=== PATIENT | female | born 1930 | race Caucasian/White ===

== ENCOUNTER 2016-04-26 13:57 | Emergency (ER) | payer OTHER ==
[2016-04-26] MEDS ORDERED: ASPIRIN 81 MG CHEWABLE TAB PO ONE (14:15)
--- NOTE | 2016-04-26 14:22 | CPEKG ---
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
[2016-04-26 14:36] LABS: % IMMATURE GRANULYOCYTES 0.3 % (0.0-1.1); ABSOLUTE IMMATURE GRANULOCYTES 0.02 10^3/uL (0.00-0.10); ADD DIFF? NO; ADD MORPH? NO; ADD SCAN? NO; ATYPICAL LYMPHOCYTE FLAG 0 (0-99); FRAGMENT RBC FLAG 0 (0-99); HEMATOCRIT 38.4 % (38.0-47.0); HEMOGLOBIN 13.4 g/dL (12.6-16.3); LEFT SHIFT FLG 0 (0-99); LIPEMIA HEMOLYSIS FLAG 90 (0-99); MEAN CELL HEMOGLOBIN 32.1 pg (27.9-34.1); MEAN CELL HEMOGLOBIN CONCENTR. 34.9 g/dL (32.4-36.7); MEAN CELL VOLUME 91.9 fL (81.5-99.8); MEAN PLATELET VOLUME 8.7 fL (8.7-11.7); PLATELET CLUMPS FLAG 0 (0-99); PLATELET COUNT 347 10^3/uL (150-400); RED BLOOD CELL COUNT 4.18 10^6/uL (4.18-5.33); RED CELL DISTRIBUTION WIDTH 13.1 % (11.5-15.2)
[2016-04-26 14:47] LABS: INR 0.9 (0.83-1.16)
[2016-04-26 14:48] LABS: APTT 25.8 SEC (23.0-38.0)
[2016-04-26 14:49] LABS: ANION GAP 10 mEq/L (8-16); CALCIUM 9.8 mg/dL (8.5-10.4); CARBON DIOXIDE 24 mEq/l (22-31); CHLORIDE 96 mEq/L (97-110); CREATININE 0.6 mg/dL (0.6-1.0); GLOMERULAR FILTRATION RATE > 60; GLUCOSE 105 mg/dL (70-100); POTASSIUM 4.2 mEq/L (3.5-5.2); SODIUM 130 mEq/L (134-144)
--- NOTE | 2016-04-26 15:00 | UCPHY ---
H & P Time Seen by Provider: 04/26/16 14:16 Patient Type: Established HPI/ROS: HPI Lightheaded. Brief chest pain. 85-year-old female by private vehicle with her . The patient was going to [place] with her in at 12 noon. She got out of the car and had which she describes as a brief episode of intense left-sided thumping chest discomfort which lasted seconds. She describes this as deep to her left breast. With this she states that she felt lightheaded and had to sit down. She denies palpitations. She reports that lasted seconds and then resolved. She then went to see her primary care physician, Dr. galeana back. She was evaluated and told to come to the urgent care for an EKG and further evaluation. She denies any history of arrhythmia or coronary artery disease. No other complaints. ROS: Constitutional: No fever, no chills. As above. Eyes: No discharge. No changes in vision. ENT: No sore throat. No nasal congestion or rhinorrhea. Respiratory: No cough. No shortness of breath. Cardiac: As above, no palpitations. Gastrointestinal: No abdominal pain, no vomiting, no diarrhea. Genitourinary: No hematuria. No dysuria or increased frequency with urination. Musculoskeletal: No back pain. No neck pain. No myalgias or arthralgias. Skin: No rashes. Neurological: No headache. No focal weakness or altered sensation. Past medical history: Pneumonia, appendectomy, hernia repair. Social history: Physical Exam: General Appearance: Alert, no distress. This patient is responding to questions appropriately and in full sentences. This patient appears well- hydrated and well-nourished. Eyes: Pupils equal and round no pallor or injection. No lid edema, erythema or injection. ENT, Mouth: Mucous membranes are moist. The pharyngeal tissues are unremarkable. No edema or swelling. No asymmetry suggestive of abscess. No erythema or exudates. Respiratory: There are no retractions, lungs are clear to auscultation with good air movement bilaterally. On gross inspection of the chest wall there is no rash. No ecchymosis or edema. She did have some mild tenderness on palpation at the anterior axillary line just beneath them mammary fold. Cardiovascular: Regular rate and rhythm. No murmur. Gastrointestinal: Abdomen is soft and nontender, no masses, bowel sounds normal. No focal tenderness at McBurney's point. No Whalen sign. Neurological: Motor sensory function is grossly intact. Cranial nerves are normal. Gait is normal. Skin: Warm and dry, no rashes. Musculoskeletal: Neck is supple and nontender. Extremities are symmetrical. All joints range without pain or impingement. Psychiatric: No agitation. No depression. Database: EKG: EKG time is 2:20 p.m.; EKG shows a narrow complex normal sinus rhythm with a ventricular rate of 60. Left anterior fascicular block noted. Subtle ST depressions in V4, V5 and V6. The NV, QRS, QT intervals are within normal limits. No evidence of right heart strain. Interpreted by me. Imaging: Chest x-ray AP portable; the cardiac mediastinal silhouette is unremarkable. No evidence of infiltrate or pneumothorax. No acute cardiopulmonary disease process noted. Interpreted by me. Procedures: Emergency department course: IV placed. She was placed on a monitor. She was given 324 mg of chewed aspirin. EKG and chest x-ray performed. Her presentation is not consistent with acute coronary syndrome or pulmonary embolism or aortic dissection. Of concern is her near syncopal episode at [facility]. 3:20 p.m., patient re-evaluated. Results of diagnostic studies discussed with her and her . Recommendation for admission to telemetry for observation and further evaluation discussed. She is requesting admission to [facility]. All of her questions were answered. 3:35 p.m., spoke with [facility] hospitalist Dr. Padmini Quinonez. Case discussed in detail with her. She accepts this patient for transfer to their telemetry observation unit. Patient's remaining emergency department course under my care has been uneventful. She and her refused ambulance transport. She will go by private vehicle. I have filled out the necessary transfer paperwork. She was transferred in stable condition. Differential Diagnosis: The differential diagnosis on this patient includes but is not limited to arrhythmia, acute coronary syndrome, pulmonary embolism, aortic dissection. This represents a partial list of diagnoses considered. These considerations are based on history, physical exam, past history, reassessment and diagnostic testing. Smoking Status: Former smoker Constitutional: Initial Vital Signs Temperature (C) 36.1 C 04/26/16 14:07 Heart Rate 55 L 04/26/16 14:07 Respiratory Rate 20 04/26/16 14:07 Blood Pressure 144/45 H 04/26/16 14:07 O2 Sat (%) 95 04/26/16 14:07 O2 Delivery Mode Room Air Allergies/Adverse Reactions: No Known Allergies Allergy (Unverified 04/26/16 14:05) Home Medications: Medication Instructions Recorded Metoprolol Tartrate 04/26/16 Synthroid 04/26/16 Medical Decision Making - Data Points Laboratory Results: Laboratory Results 04/26/16 14:31 04/26/16 14:31 Medications Given: Discontinued Medications Aspirin (Aspirin) 324 mg PO EDNOW ONE Stop: 04/26/16 14:16 Last Admin: 04/26/16 14:30 Dose: 324 mg Departure - Departure Disposition: Acute Care Hospital Not [facility] Clinical Impression: Near syncope, Chest pain Referrals: Lindsey Anne [Primary Care Provider] - As per Instructions - PQRS PQRS Measurement: PQRS Deferred.
[2016-04-26 15:21] LABS: TROPONIN I < 0.012 ng/mL (0-0.034)
[2016-04-26 16:31] VITALS: BP 142/74; PULSE 65; RESP 21; TEMP 97.9; O2SAT 96
--- NOTE | 2016-04-27 11:08 | DX ---
Portable AP chest. 04/26/2016 at 1418 History: Left-sided chest pain. Comparison examination: January 30, 2014. Findings: Interstitial infiltrate in the left midlung is unchanged. 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 No pneumothorax or pleural effusion. Heart size is normal. Impression: Stable chest.
== END 2016-04-26 16:40 | disposition short-term general hospital (02) ==
LOC: CED 13:57
DX: R55 Syncope and collapse (principal); R07.89 Other chest pain; R94.31 Abnormal electrocardiogram [ECG] [EKG]
CPT/HCPCS: 71010; 93005; G0463; 80048-PO; 84443-PO; 84484-PO; 85025-PO; 85610-PO; 85730-PO